=== PATIENT | female | born 1985 | race Two or more races ===

== ENCOUNTER 2017-11-21 00:01 | Emergency (ER) | payer SELFPAY ==
[~2017-11-21] VITALS: Ht 165.1 cm; Wt 116.6 kg
[2017-11-21 00:40] VITALS: BP 156/85
--- NOTE | 2017-11-21 00:41 | PHYS DOC ---
Past History Past Medical History: Anemia, Diabetes Additional Past Medical Histor: Chronic back pain Past Surgical History: Cholecystectomy, , Other Alcohol Use: None Drug Use: None Adult General Chief Complaint Chief Complaint: SORE THROAT HPI HPI 32 y/o female presents with report of sore throat and tongue "tingling" which started a few hours ago. Reports received steroid (dexamethasone) injections into her back at 1630 today. Patient concerned that her blood sugar might have gotten too high. Reports history of DM. Reports blood sugar was > 300. Reports she did take her metformin 30 min prior to checking. Denies other complaint. Denies chest pain. Denies cough. Denies nasal congestion. Review of Systems Review of Systems Constitutional: Denies fever or chills [] Eyes: Denies change in visual acuity, redness, or eye pain [] HENT: Denies nasal congestion; reports sore throat [] Respiratory: Denies cough or shortness of breath [] Cardiovascular: Denies chest pain or palpitations GI: Denies abdominal pain, nausea, vomiting, or diarrhea [] : Denies dysuria or hematuria [] Musculoskeletal: Denies back pain or joint pain [] Integument: Denies rash or skin lesions [] Neurologic: Denies headache, focal weakness or sensory changes [] Complete systems were reviewed and found to be within normal limits, except as documented in this note. Current Medications Current Medications Current Medications Medications (Trade) Dose Ordered Sig/Apollo Start Time Stop Time Status Last Admin Dose Admin Diphenhydramine HCl (Benadryl) 25 mg 1X ONCE 11/21/17 00:45 11/21/17 00:46 UNV Allergies Allergies Allergies Coded Allergies Type Severity Reaction Last Updated Verified No Known Allergies Allergy Unknown 11/21/17 Yes Physical Exam Physical Exam Constitutional: Well developed, well nourished, no acute distress, non-toxic appearance. [] HENT: Normocephalic, atraumatic, oropharynx moist, no oral exudates, nose normal , tongue normal size, handles secretions normally Eyes: PERRL, EOMI, conjunctiva normal, no discharge. [] Neck: Normal range of motion, no tenderness, supple, no meningeal signs. [] Cardiovascular: Heart rate regular rhythm, no murmur [] Lungs & Thorax: Bilateral breath sounds clear to auscultation, no stridor Abdomen: Soft, no tenderness Skin: Warm, dry, no erythema, no rash. [] Extremities: No tenderness, ROM intact, no edema. [] Neurologic: Alert and oriented X 3, normal motor function, normal sensory function, no focal deficits noted. [] Psychologic: Affect normal, judgement normal, mood- anxious Current Patient Data Vital Signs Vital Signs Date Time Temp Pulse Resp B/P (MAP) Pulse Ox O2 Delivery O2 Flow Rate FiO2 11/21/17 00:12 97.6 83 20 98 Room Air EKG EKG [] Radiology/Procedures Radiology/Procedures [] Course & Med Decision Making Course & Med Decision Making Patient presents with concern for possible side effects after receiving steroid injections to back for chronic back pain. No respiratory distress or compromise noted. No rash appreciated. Patient also concenred for possible elevated blood sugar. Accucheck 299. HPI and physical exam doubtful for DKA or HHS. Patient stable for discharge home with outpatient follow-up with PCP. Discussed findings and plan with patient, who acknowledges understanding and agreement. [employer], voice recognition software, utilized. [place] Disclaimer [employer] Disclaimer This electronic medical record was generated, in whole or in part, using a voice recognition dictation system. Departure Departure: Impression: Primary Impression: Medication side effects Disposition: HOME, SELF-CARE Condition: STABLE Referrals: JENNIFER GRAY DO (PCP) Patient Instructions: Drug Allergy, [id number], Post-Injection Inflammatory Reaction Additional Instructions: Use over the counter Benadryl as needed. PRINCE BAUTISTA DO Nov 21, 2017 00:41
[2017-11-21] MEDS ORDERED: diphenhydrAMINE HCL 25 MG CAPSULE PO ONE (01:00)
== END 2017-11-21 00:45 | disposition home or self-care (01) ==
LOC: ER 00:01
DX: J02.9 Acute pharyngitis, unspecified (principal); R20.2 Paresthesia of skin; T38.0X5A Adverse effect of glucocorticoids and synthetic analogues, initial encounter; E11.9 Type 2 diabetes mellitus without complications; G89.29 Other chronic pain; M54.89 Other dorsalgia; Z86.2 Personal history of diseases of the blood and blood-forming organs and certain disorders involving the immune mechanism; Y92.89 Other specified places as the place of occurrence of the external cause
CPT/HCPCS: 82947; 99283

== ENCOUNTER 2018-08-14 00:07 | Emergency (ER) | payer BC ==
[~2018-08-14] VITALS: Ht 162.6 cm; Wt 113.0 kg
--- NOTE | 2018-08-14 00:21 | ED.ADGEN ---
Past History Past Medical History: Anemia, Diabetes, Hypertension, Migraines Additional Past Medical Histor: Chronic back pain Past Surgical History: Cholecystectomy, , Lumbar Laminectomy, Other Alcohol Use: None Drug Use: None Adult General Chief Complaint Chief Complaint " I all sudden got this Lt frontal headache... it started about 11 pm... 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 frontal headache . On set of headache was at 2300 hrs. Patient denies any trauma. Patient denies any travel. Is exposed to sick patients turn her work. Patient does have a history of hypertension and DM. Pt. on Lisinopril 10 for her hypertension. Pt. has had Lumbar surgery in June for a herniated disc. Review of Systems Review of Systems Constitutional: Denies fever or chills [] Eyes: Denies change in visual acuity, redness, or eye pain [] HENT: Denies nasal congestion or sore throat [] Respiratory: Denies cough or shortness of breath [] Cardiovascular: No additional information not addressed in HPI [] GI: Denies abdominal pain, , vomiting, bloody stools or diarrhea [] Complaints of nausea. : Denies dysuria or hematuria [] Musculoskeletal: Denies back pain or joint pain [] Integument: Denies rash or skin lesions [] Neurologic: Complaints of lt. frontal headache. Denies, focal weakness or sensory changes [] Endocrine: Denies polyuria or polydipsia [] All other systems were reviewed and found to be within normal limits, except as documented in this note. Family History Family History Non-contributory Current Medications Current Medications Current Medications Medications (Trade) Dose Ordered Sig/Apollo Start Time Stop Time Status Last Admin Dose Admin Albuterol/ Ipratropium (Duoneb) 3 ml RTQID 08/14/18 08:00 08/14/18 08:00 DC Aspirin (Misti Aspirin) 325 mg 1X ONCE 08/14/18 02:00 08/14/18 02:01 DC Aspirin (Children'S Aspirin) 81 mg DAILY 08/14/18 09:00 08/14/18 09:00 DC Fentanyl Citrate (Fentanyl 2ml Vial) 75 mcg 1X ONCE 08/14/18 02:00 08/14/18 02:01 DC 08/14/18 02:03 75 MCG Labetalol HCl (Normodyne) 10 mg 1X ONCE 08/14/18 03:00 08/14/18 03:00 DC Lactated Ringer's 1,000 ml @ 160 mls/hr Q6H15M 08/14/18 02:00 08/14/18 02:50 DC 08/14/18 02:04 160 MLS/HR Ondansetron HCl (Zofran) 4 mg PRN Q4HRS PRN 08/14/18 01:30 08/14/18 02:50 DC 08/14/18 02:21 4 MG Potassium Chloride (KCl Oral Soln) 40 meq 1X ONCE 08/14/18 00:45 08/14/18 01:04 DC Sodium Bicarbonate (Sodium Bicarb Adult 8.4% Syr) 50 meq 1X ONCE 08/14/18 00:45 08/14/18 01:04 DC Sodium Chloride 50 ml @ As Directed STK-MED ONCE 08/14/18 01:50 08/14/18 01:51 DC Valproic Acid (Depacon) 500 mg STK-MED ONCE 08/14/18 01:50 08/14/18 01:51 DC Valproic Acid 500 mg/Sodium Chloride 55 ml @ 55 mls/hr 1X ONCE 08/14/18 02:00 08/14/18 02:50 DC 08/14/18 02:13 55 MLS/HR Allergies Allergies Allergies Coded Allergies Type Severity Reaction Last Updated Verified No Known Allergies Allergy Unknown 11/21/17 Yes Physical Exam Physical Exam Constitutional: Moderate acute distress, non-toxic appearance. [] HENT: Normocephalic, atraumatic, bilateral external ears normal, oropharynx moist, no oral exudates, nose normal. [] Eyes: PERRLA, EOMI, conjunctiva normal, no discharge. [] Photophobia. Fundus benign. ( Limited exam) Neck: Normal range of motion, no tenderness, supple, no stridor. [] Cardiovascular:Heart rate regular rhythm, no murmur [] Lungs & Thorax: Bilateral breath sounds equal at apexes on auscultation [] Abdomen: Bowel sounds normal, soft, no tenderness, no masses, no pulsatile masses. Obese. Old surgery scars. Skin: Warm, dry, no erythema, no rash. [] Back: No tenderness, no CVA tenderness. [] Old scar. Extremities: No tenderness, no cyanosis, no clubbing, ROM intact, no edema. [] DTR +2 patella and brachial. Rt. hand dominate. Neurologic: Alert and oriented X 3, normal motor function, normal sensory function, no focal deficits noted. []AC>BC with 128. No lateralization. Distal Vibratory intact. No drift. Tin Flopper equal. Psychologic: Affect anxious, judgement normal, mood normal. [] Current Patient Data Vital Signs Vital Signs Date Time Temp Pulse Resp B/P (MAP) Pulse Ox O2 Delivery O2 Flow Rate FiO2 08/14/18 03:06 76 151/92 (111) 98 Room Air 08/14/18 00:09 97.4 22 Lab Results Laboratory Tests Test 08/14/18 00:22 08/14/18 00:59 08/14/18 01:13 White Blood Count 9.0 x10^3/uL (4.0-11.0) Red Blood Count 5.03 x10^6/uL (3.50-5.40) Hemoglobin 12.6 g/dL (12.0-15.5) Hematocrit 39.3 % (36.0-47.0) Mean Corpuscular Volume 78 fL (79-100) L Mean Corpuscular Hemoglobin 25 pg (25-35) Mean Corpuscular Hemoglobin Concent 32 g/dL (31-37) Red Cell Distribution Width 15.1 % (11.5-14.5) H Platelet Count 236 x10^3/uL (140-400) Neutrophils (%) (Auto) 51 % (31-73) Lymphocytes (%) (Auto) 38 % (24-48) Monocytes (%) (Auto) 8 % (0-9) Eosinophils (%) (Auto) 3 % (0-3) Basophils (%) (Auto) 0 % (0-3) Neutrophils # (Auto) 4.6 x10^3uL (1.8-7.7) Lymphocytes # (Auto) 3.4 x10^3/uL (1.0-4.8) Monocytes # (Auto) 0.7 x10^3/uL (0.0-1.1) Eosinophils # (Auto) 0.3 x10^3/uL (0.0-0.7) Basophils # (Auto) 0.0 x10^3/uL (0.0-0.2) Erythrocyte Sedimentation Rate 20 (0-25) Prothrombin Time 10.0 SEC (9.4-11.4) Prothrombin Time INR 1.0 (0.9-1.1) PTT 27 SEC (23-33) D-Dimer (Vidya) < 0.19 mg/L (0.00-0.50) Sodium Level 136 mmol/L (136-145) Potassium Level 4.1 mmol/L (3.5-5.1) Chloride Level 100 mmol/L (98-107) Carbon Dioxide Level 25 mmol/L (21-32) Anion Gap 11 (6-14) Blood Urea Nitrogen 12 mg/dL (7-20) Creatinine 0.6 mg/dL (0.6-1.0) Estimated GFR (Cockcroft-Gault) 115.1 Glucose Level 230 mg/dL (70-99) H Calcium Level 9.9 mg/dL (8.5-10.1) Magnesium Level 1.8 mg/dL (1.8-2.4) Total Bilirubin 0.2 mg/dL (0.2-1.0) Direct Bilirubin 0.1 mg/dL (0.0-0.2) Aspartate Amino Transferase (AST) 15 U/L (15-37) Alanine Aminotransferase (ALT) 26 U/L (14-59) Alkaline Phosphatase 71 U/L (46-116) Creatine Kinase 37 U/L (26-192) Troponin I Quantitative < 0.017 ng/mL (0-0.055) TO-Tkf-P-Type Natriuretic Peptide 23 pg/mL (0-124) Total Protein 7.9 g/dL (6.4-8.2) Albumin 3.8 g/dL (3.4-5.0) Lipase 102 U/L (73-393) Urine Collection Type Unknown Urine Color Yellow Urine Clarity Clear Urine pH 7.5 Urine Specific [place] 1.020 Urine Protein Trace (NEG-TRACE) Urine Glucose (UA) 500 mg/dL (NEG) Urine Ketones (Stick) Neg mg/dL (NEG) Urine Blood Neg (NEG) Urine Nitrite Neg (NEG) Urine Bilirubin Neg (NEG) Urine Urobilinogen Dipstick 0.2 mg/dL (0.2 mg/dL) Urine Leukocyte Esterase Neg (NEG) Urine RBC 0 /HPF (0-2) Urine WBC 1-4 /HPF (0-4) Urine Squamous Epithelial Cells Mod /LPF Urine Bacteria 0 /HPF (0-FEW) Urine Opiates Screen Neg (NEG) Urine Methadone Screen Neg (NEG) Urine Barbiturates Neg (NEG) Urine Phencyclidine Screen Neg (NEG) Urine Amphetamine/Methamphetamine Neg (NEG) Urine Benzodiazepines Screen Neg (NEG) Urine Cocaine Screen Neg (NEG) Urine Cannabinoids Screen Neg (NEG) Urine Ethyl Alcohol Neg (NEG) POC Urine HCG, Qualitative hcg negative (Negative) EKG EKG I interpretation EKG shows a sinus rhythm at 67 bpm. No acute morphology.[] Radiology/Procedures Radiology/Procedures My interpretation of chest x-ray shows no acute cardiopulmonary findings.[address] [address] IMAGING REPORT Signed PATIENT: TACOS PONCE ACCOUNT: [id number] : 1985 LOCATION: ER AGE: 33 SEX: F EXAM STATUS: REG ER ORD. PHYSICIAN: BELÉN ARANA MD REASON: Severe headache PROCEDURE: CT HEAD WO CONTRAST INDICATION: Headache COMPARISON: None. TECHNIQUE: Axial CT images obtained through the head without intravenous contrast. One or more of the following individualized dose reduction techniques were utilized for this examination: 1. Automated exposure control; 2. Adjustment of the mA and/or kV according to patient size; 3. Use of iterative reconstruction technique. FINDINGS: High density is seen within the sulci of the left cerebral hemisphere and extending into the suprasellar cistern on the left No evidence of hydrocephalus. There is not a significant amount of midline shift at this time. IMPRESSION: 1. High density material is seen throughout the sulci of the left cerebral hemisphere as well as the suprasellar cistern and left side of the quadrigeminal plate cistern. This could be secondary to intraventricular and subarachnoid hemorrhage. Report called to the emergency department at 1:54 AM on date of exam Electronically signed by: Patricia Thomason MD (08/14/2018 1:58 AM) [facility] DICTATED AND SIGNED BY: PATRICIA THOMASON MD DATE: 08/14/18 0158 CC: BELÉN ARANA MD; NON,STAFF ~ [] Course & Med Decision Making Course & Med Decision Making Pertinent Labs and Imaging studies reviewed. (See chart for details) Pt. accepted at Dr. Grove Room [id number]. Discussed with Transfer team Kelechi- 2:15 hrs. [] Final Impression Final Impression 1. Headache[] 2. Accelerated Hypertension 3. DM 230 4. Subarachnoid Hemorrhage Dragon Disclaimer Dragon Disclaimer This electronic medical record was generated, in whole or in part, using a voice recognition dictation system. Discharge Summary Visit Information Final Diagnosis Problems Medical Problems: (1) Subarachnoid hemorrhage Status: Acute Brief Hospital Course Allergies Allergies Coded Allergies Type Severity Reaction Last Updated Verified No Known Allergies Allergy Unknown 11/21/17 Yes Vital Signs Vital Signs Date Time Temp Pulse Resp B/P (MAP) Pulse Ox O2 Delivery O2 Flow Rate FiO2 08/14/18 03:06 76 151/92 (111) 98 Room Air 08/14/18 00:09 97.4 22 Lab Results Laboratory Tests Test 08/14/18 00:22 08/14/18 00:59 08/14/18 01:13 White Blood Count 9.0 x10^3/uL (4.0-11.0) Red Blood Count 5.03 x10^6/uL (3.50-5.40) Hemoglobin 12.6 g/dL (12.0-15.5) Hematocrit 39.3 % (36.0-47.0) Mean Corpuscular Volume 78 fL (79-100) Mean Corpuscular Hemoglobin 25 pg (25-35) Mean Corpuscular Hemoglobin Concent 32 g/dL (31-37) Red Cell Distribution Width 15.1 % (11.5-14.5) Platelet Count 236 x10^3/uL (140-400) Neutrophils (%) (Auto) 51 % (31-73) Lymphocytes (%) (Auto) 38 % (24-48) Monocytes (%) (Auto) 8 % (0-9) Eosinophils (%) (Auto) 3 % (0-3) Basophils (%) (Auto) 0 % (0-3) Neutrophils # (Auto) 4.6 x10^3uL (1.8-7.7) Lymphocytes # (Auto) 3.4 x10^3/uL (1.0-4.8) Monocytes # (Auto) 0.7 x10^3/uL (0.0-1.1) Eosinophils # (Auto) 0.3 x10^3/uL (0.0-0.7) Basophils # (Auto) 0.0 x10^3/uL (0.0-0.2) Erythrocyte Sedimentation Rate 20 (0-25) Prothrombin Time 10.0 SEC (9.4-11.4) Prothromb Time International Ratio 1.0 (0.9-1.1) Activated Partial Thromboplast Time 27 SEC (23-33) D-Dimer (Vidya) < 0.19 mg/L (0.00-0.50) Sodium Level 136 mmol/L (136-145) Potassium Level 4.1 mmol/L (3.5-5.1) Chloride Level 100 mmol/L (98-107) Carbon Dioxide Level 25 mmol/L (21-32) Anion Gap 11 (6-14) Blood Urea Nitrogen 12 mg/dL (7-20) Creatinine 0.6 mg/dL (0.6-1.0) Estimated GFR (Cockcroft-Gault) 115.1 Glucose Level 230 mg/dL (70-99) Calcium Level 9.9 mg/dL (8.5-10.1) Magnesium Level 1.8 mg/dL (1.8-2.4) Total Bilirubin 0.2 mg/dL (0.2-1.0) Direct Bilirubin 0.1 mg/dL (0.0-0.2) Aspartate Amino Transf (AST/SGOT) 15 U/L (15-37) Alanine Aminotransferase (ALT/SGPT) 26 U/L (14-59) Alkaline Phosphatase 71 U/L (46-116) Creatine Kinase 37 U/L (26-192) Troponin I Quantitative < 0.017 ng/mL (0-0.055) US-Xmt-D-Type Natriuretic Peptide 23 pg/mL (0-124) Total Protein 7.9 g/dL (6.4-8.2) Albumin 3.8 g/dL (3.4-5.0) Lipase 102 U/L (73-393) Urine Collection Type Unknown Urine Color Yellow Urine Clarity Clear Urine pH 7.5 Urine Specific [place] 1.020 Urine Protein Trace (NEG-TRACE) Urine Glucose (UA) 500 mg/dL (NEG) Urine Ketones (Stick) Neg mg/dL (NEG) Urine Blood Neg (NEG) Urine Nitrite Neg (NEG) Urine Bilirubin Neg (NEG) Urine Urobilinogen Dipstick 0.2 mg/dL (0.2 mg/dL) Urine Leukocyte Esterase Neg (NEG) Urine RBC 0 /HPF (0-2) Urine WBC 1-4 /HPF (0-4) Urine Squamous Epithelial Cells Mod /LPF Urine Bacteria 0 /HPF (0-FEW) Urine Opiates Screen Neg (NEG) Urine Methadone Screen Neg (NEG) Urine Barbiturates Neg (NEG) Urine Phencyclidine Screen Neg (NEG) Urine Amphetamine/Methamphetamine Neg (NEG) Urine Benzodiazepines Screen Neg (NEG) Urine Cocaine Screen Neg (NEG) Urine Cannabinoids Screen Neg (NEG) Urine Ethyl Alcohol Neg (NEG) Bedside Urine HCG, Qualitative hcg negative (Negative) Brief Hospital Course Ms. Ponce is a 33 old female who presented with headache, found to have subarachoid hemorrhage. Transfer to Dr. Grove accepting . Room [place] 1523 Discharge Information Disposition/Orders: D/C to Another Facility Dischare Medications Current Medications Lactated Ringer's 1,000 ml @ 1,000 mls/hr Q1H IV Last administered on 08/14/18at 00:42; Admin Dose 1,000 MLS/HR; Start 08/14/18 at 01:00; Stop 08/14/18 at 01:59; Status DC Ondansetron HCl (Zofran) 4 mg 1X ONCE IV Last administered on 08/14/18at 00:42; Admin Dose 4 MG; Start 08/14/18 at 01:00; Stop 08/14/18 at 01:01; Status DC Fentanyl Citrate (Fentanyl 2ml Vial) 75 mcg 1X ONCE IV Last administered on 08/14/18at 00:42; Admin Dose 75 MCG; Start 08/14/18 at 01:00; Stop 08/14/18 at 01:01; Status DC Potassium Chloride (KCl Oral Soln) 40 meq 1X ONCE PO ; Start 08/14/18 at 00:45; Stop 08/14/18 at 01:04; Status DC Sodium Bicarbonate (Sodium Bicarb Adult 8.4% Syr) 50 meq 1X ONCE IV ; Start 08/14/18 at 00:45; Stop 08/14/18 at 01:04; Status DC Aspirin (Misti Aspirin) 325 mg 1X ONCE PO ; Start 08/14/18 at 02:00; Stop 08/14/18 at 02:01; Status DC Ondansetron HCl (Zofran) 4 mg PRN Q4HRS PRN IV NAUSEA/VOMITING Last adm inistered on 08/14/18at 02:21; Admin Dose 4 MG; Start 08/14/18 at 01:30; Stop 08/14/18 at 02:50; Status DC Albuterol/ Ipratropium (Duoneb) 3 ml RTQID NEB ; Start 08/14/18 at 08:00; Stop 08/14/18 at 08:00; Status DC Lactated Ringer's 1,000 ml @ 160 mls/hr Q6H15M IV Last administered on 08/14/18at 02:04; Admin Dose 160 MLS/HR; Start 08/14/18 at 02:00; Stop 08/14/18 at 02:50; Status DC Aspirin (Children'S Aspirin) 81 mg DAILY PO ; Start 08/14/18 at 09:00; Stop 08/14/18 at 09:00; Status DC Valproic Acid 500 mg/Sodium Chloride 55 ml @ 55 mls/hr 1X ONCE IV Last administered on 08/14/18at 02:13; Admin Dose 55 MLS/HR; Start 08/14/18 at 02:00; Stop 08/14/18 at 02:50; Status DC Fentanyl Citrate (Fentanyl 2ml Vial) 75 mcg 1X ONCE IV Last administered on 08/14/18at 02:03; Admin Dose 75 MCG; Start 08/14/18 at 02:00; Stop 08/14/18 at 02:01; Status DC Sodium Chloride 50 ml @ As Directed STK-MED ONCE .ROUTE ; Start 08/14/18 at 01:50; Stop 08/14/18 at 01:51; Status DC Valproic Acid (Depacon) 500 mg STK-MED ONCE IV ; Start 08/14/18 at 01:50; Stop 08/14/18 at 01:51; Status DC Labetalol HCl (Normodyne) 10 mg 1X ONCE IVP Last administered on 08/14/18at 02:38; Admin Dose 10 MG; Start 08/14/18 at 02:30; Stop 08/14/18 at 02:31; Status DC Labetalol HCl (Normodyne) 10 mg 1X ONCE IVP ; Start 08/14/18 at 03:00; Stop 08/14/18 at 03:00; Status DC Dragon Disclaimer This chart was dictated in whole or in part using Voice Recognition software in a busy, high-work load, and often noisy Emergency Department environment. It may contain unintended and wholly unrecognized errors or omissions. BELÉN ARANA MD Aug 14, 2018 00:21
[2018-08-14 00:42] LABS: BASO % 0 % (0-3); EOS # 0.3 x10^3/uL (0.0-0.7); EOS % 3 % (0-3); HEMATOCRIT 39.3 % (36.0-47.0); HEMOGLOBIN 12.6 g/dL (12.0-15.5); LYMPH # 3.4 x10^3/uL (1.0-4.8); LYMPH % 38 % (24-48); MEAN CORPUSCULAR HEMOGLOBIN 25 pg (25-35); MEAN CORPUSCULAR HGB CONC 32 g/dL (31-37); MEAN CORPUSCULAR VOLUME 78 fL (79-100); MONO # 0.7 x10^3/uL (0.0-1.1); MONO % 8 % (0-9); NEUT # 4.6 x10^3uL (1.8-7.7); NEUT % 51 % (31-73); PLATELET COUNT 236 x10^3/uL (140-400); RED BLOOD COUNT 5.03 x10^6/uL (3.50-5.40); RED CELL DISTRIBUTION WIDTH 15.1 % (11.5-14.5)
[2018-08-14] MEDS ORDERED: SODIUM BICARB ADULT 8.4% 50 MEQ/50 ML DISP.SYRIN. IV ONE (00:45)
[2018-08-14] MEDS ORDERED: POTASSIUM CHLORIDE 20 MEQ/15 ML ORAL LIQUID. PO ONE (00:45)
[2018-08-14] MEDS ORDERED: IV RINGERS SOLUTION,LACTATED 1,000 ML IV SCH ×2 (01:00→02:00)
[2018-08-14] MEDS ORDERED: ONDANSETRON PF 4 MG/2 ML VIAL. IV ONE (01:00)
[2018-08-14 01:04] LABS: ALBUMIN 3.8 g/dL (3.4-5.0); CALCIUM 9.9 mg/dL (8.5-10.1); CREATININE 0.6 mg/dL (0.6-1.0); DIRECT BILIRUBIN 0.1 mg/dL (0.0-0.2); GFR 115.1; MAGNESIUM 1.8 mg/dL (1.8-2.4); POTASSIUM 4.1 mmol/L (3.5-5.1); TOTAL BILIRUBIN 0.2 mg/dL (0.2-1.0); TOTAL PROTEIN 7.9 g/dL (6.4-8.2)
[2018-08-14 01:25] LABS: BARBITURATES NEG (NEG); BENZODIAZEPINES NEG (NEG); CANNABINOIDS NEG (NEG); COCAINE NEG (NEG); METHADONE NEG (NEG); OPIATES NEG (NEG); PHENCYCLIDINE NEG (NEG)
[2018-08-14 01:27] LABS: BACTERIA,URINE 0 /HPF (0-FEW); BILIRUBIN,URINE NEG (NEG); CLARITY,URINE CLEAR; COLOR,URINE YELLOW; GLUCOSE,URINE 500 mg/dL (NEG); NITRITE,URINE NEG (NEG); RBC,URINE 0 /HPF (0-2); SQUAMOUS EPITHELIAL CELL,UR MOD /LPF; UROBILINOGEN,URINE 0.2 mg/dL (0.2 mg/dL)
[2018-08-14 01:30] LABS: AMPHETAMINE/METHAMPHETAMINE NEG (NEG)
[2018-08-14] MEDS ORDERED: ONDANSETRON PF 4 MG/2 ML VIAL. IV PRN (01:30)
[2018-08-14 01:40] LABS: SEDIMENTATION RATE 20 (0-25)
[2018-08-14] MEDS ORDERED: VALPROATE SODIUM 500 MG/5 ML VIAL IV ONE (01:50)
[2018-08-14] MEDS ORDERED: IV NORMAL SALINE 50ML 50 ML ONE (01:50)
[2018-08-14] MEDS ORDERED: ASPIRIN 325 MG TABLET PO ONE (02:00)
[2018-08-14] MEDS ORDERED: VALPROATE SODIUM 500 MG in IV NORMAL SALINE 50ML 50 ML IV ONE (02:00)
--- NOTE | 2018-08-14 02:00 | RAD ---
INDICATION: Headache COMPARISON: None. TECHNIQUE: Axial CT images obtained through the head without intravenous contrast. One or more of the following individualized dose reduction techniques were utilized for this examination: 1. Automated exposure control; 2. Adjustment of the mA and/or kV according to patient size; 3. Use of iterative reconstruction technique. FINDINGS: High density is seen within the sulci of the left cerebral hemisphere and extending into the suprasellar cistern on the left No evidence of hydrocephalus. There is not a significant amount of midline shift at this time. IMPRESSION: 1. High density material is seen throughout the sulci of the left cerebral hemisphere as well as the suprasellar cistern and left side of the quadrigeminal plate cistern. This could be secondary to intraventricular and subarachnoid hemorrhage. Report called to the emergency department at 1:54 AM on date of exam Electronically signed by: Robby Galan MD (08/14/2018 1:58 AM) [id number]
[2018-08-14] MEDS ORDERED: LABETALOL 20 MG/4 ML DISP.SYRIN. IVP ONE ×2 (02:30→03:00)
[2018-08-14 03:06] VITALS: BP 148/92
--- NOTE | 2018-08-14 07:47 | RAD ---
Examination: PORTABLE CHEST 1V History: Hypertension and weakness Comparison/Correlation: None Findings: Portable frontal view chest was obtained. Heart size and pulmonary vasculature are normal. No infiltrate or pleural effusion. No pneumothorax. Bony structures are unremarkable. Impression: No active disease. Electronically signed by: Clayton Syed MD (08/14/2018 7:44 AM) [facility]
[2018-08-14] MEDS ORDERED: IPRATRPIUM/ALBUTEROL 0.5/2.5MG 3 ML NEBU. NEB SCH (08:00)
[2018-08-14] MEDS ORDERED: ASPIRIN 81 MG TAB.CHEW PO SCH (09:00)
== END 2018-08-14 02:50 | disposition short-term general hospital (02) ==
LOC: ER 00:07
DX: I60.9 Nontraumatic subarachnoid hemorrhage, unspecified (principal); I10 Essential (primary) hypertension; G43.909 Migraine, unspecified, not intractable, without status migrainosus; E11.9 Type 2 diabetes mellitus without complications; G89.29 Other chronic pain; M54.89 Other dorsalgia; Z83.2 Family history of diseases of the blood and blood-forming organs and certain disorders involving the immune mechanism
CPT/HCPCS: 36415; 70450; 71045; 80048; 80076; 80307; 81001; 81025; 82550; 83690; 83735; 83880; 84443; 84484; 85025; 85379; 85610; 85651; 85730; 93005; 96365; 96374; 96375; 96376; 99285; J2405; J3010; J3490; J7120